=== PATIENT | female | born 1940 | race Caucasian/White ===

== ENCOUNTER → 2016-05-27 | Outpatient (CLI) | payer OTHER ==
[~2016-05-27] VITALS: Ht 162.6 cm; Wt 60.0 kg
[~2016-05-27] MED LIST: ALIGN4 MG PO; ATIVAN0.5 MG PO; AUGMENTIN 875875 M1; BACLOFEN 10MG T10 MG PO; BIOTIN-D1 GM PO; CALCIUM 500 +1 EAC4; COLACE1 EAC1; DESYREL50 MG PO; ESTRACE0.5 MG PO; FISH OIL300 MG PO; IBUPROFEN 200200 M1 PO; MULTI-VITAMIN1 EAC5 PO; NABUMETONE 500500 M1 PO; NAPROSYN250 MG PO; NORCO 5-325 TA1 EACH PO; OMEGA-31000 MG PO; PROCEL PO; TRAMADOL 50 MG50 MG PO; VITAMIN B122500 MCG PO
--- NOTE | ~2016-05-27 | HPC ---
[facility] [address] [place] [address] PAIN MANAGEMENT CONSULTATION Name: ZANA MITCHELL Room #: REG [facility].#: [id number] Admission: 05/27/16 Attend Phys: Donal Parker DO Discharge: Date of : 38 Report #: [id number] THIS REPORT FOR: //name// CC: Alejandro Morales MD DATE OF SERVICE: 05/27/2016 REFERRING PHYSICIAN: Maco Morales MD. CHIEF COMPLAINT: Neck pain and right head pain. HISTORY OF PRESENT ILLNESS: As you know, the patient is a very pleasant 76-year-old female who returns today in followup visit stating she has had recurrent neck pain and right head pain. She is now placing pain score at 7/10. States her pain is constant, aching, sharp, and pounding, exacerbated with loud noise and anxiety, worse in the morning hours upon arising, relaxation, pillow changes, and nabumetone appear to improve pain. She returns today in followup visit with recurrent symptoms without inciting injury or trauma. As you are aware, the patient was doing very well with changes in her pillow and medications. Unfortunately, this began to wane, and has capabilities of improving symptoms. She returns to discuss options. ALLERGIES: NEOMYCIN, IODINATED CONTRAST MATERIAL. CURRENT MEDICATIONS: Nabumetone 500 mg twice a day, baclofen 10 mg once a day, lorazepam, cyanocobalamin, omega 3 fish oil, estradiol, trazodone, Biotin, protein supplements, calcium and multivitamin. SOCIAL HISTORY: The patient denies tobacco, alcohol, IV or illicit drug use. She is retired, retired years ago, accompanied by her daughter. PHYSICAL EXAMINATION: VITAL SIGNS: Blood pressure 136/78, pulse 64, respiratory rate 14, unlabored. The patient is 100% on room air. Height 5 feet 4 inches tall, weight 132.2 pounds, BMI calculated 22.7. GENERAL: Well developed, well nourished, well hydrated, thin. A 76-year-old female appearing her stated age. She is placing current pain score at 7/10. HEENT: Normocephalic and atraumatic. Pupils are equal, round, and reactive to light. Extraocular muscles are intact. Sclerae are nonicteric without injection. NEUROLOGIC: Cranial nerves 2-12 are grossly intact. Speech is fluent. EXTREMITIES: Show no clubbing, no cyanosis, no edema. MUSCULOSKELETAL: There is palpatory tenderness over the upper cervical region. Deep palpation over the distribution of the third occipital nerve on the right [address] [address] PAIN MANAGEMENT CONSULTATION Name: ZANA MITCHELL Room #: REG [facility]#: [id number] Admission: 05/27/16 Attend Phys: Donal Parker DO Discharge: Date of : 38 Report #: [id number] causes intensification of pain with radiation in the patient's typical distribution. Cervical provocation testing including extension, rotation, and lateral flexions met with increasing pain with radiation over the occiput towards the greater and lesser occipital distribution. ASSESSMENT: 1. Third occipital neuralgia. 2. Cervical spondylosis without radiculopathy. 3. Chronic intractable pain. PLAN: 1. The patient has returned today in followup visit. Unfortunately, reporting recurrence of neck pain and head pain. We have discussed with the patient that the source of this pain is the arthritic changes at the upper portion of cervical region. Treatment options remain similar to her initial evaluation. Physical therapy with traction techniques. We discussed medication management changes with addition of a consistent anti-inflammatory that may provide better improvement than nabumetone and the addition of a low dose opioid such as tramadol. We discussed intra-articular injections and third occipital nerve blocks and possible surgical options. After reviewing all risks and benefits of proposed treatment options, the patient requested further changes in medication. 2. The patient was started on tramadol 50 mg dose one tab p.o. t.i.d. to q.i.d. p.r.n. pain. She was given #90 tablets, advised to begin the medication immediately. We will assess efficacy in one week, when she will contact our clinic to discuss improvements or lack of improvement and whether or not she wishes to move forward with injection therapy. 3. The patient will discontinue the use of nabumetone, in place, will be using Zipsor 25 mg dose. She was given samples of the medication today. She is to take the Zipsor in the morning and at dinner time. This should provide better baseline nonsteroidal anti-inflammatory activity. 4. We have made the patient an appointment back with us in one week, assuming no improvement in symptoms with the medications. We will then move forward with third occipital nerve blocks bilaterally to address the third occipital neuralgia, tension headache, and cervical facet arthropathy. <ELECTRONICALLY SIGNED> By: Donal Parker DO 06/01/16 0702 0830 1057 Donal Parker DO /nt
[2016-05-27 09:18] VITALS: BP 136/78
== END ==
LOC: PAIN 07:12
DX: M47.812 Spondylosis without myelopathy or radiculopathy, cervical region (principal); M54.81 Occipital neuralgia

== ENCOUNTER → 2017-02-01 | Outpatient (CLI) | payer OTHER | LOC: RAD 14:31 | DX: M47.896 Other spondylosis, lumbar region (principal); M48.06 Spinal stenosis, lumbar region; M48.07 Spinal stenosis, lumbosacral region; M54.31 Sciatica, right side ==

== ENCOUNTER → 2017-02-09 | Outpatient (CLI) | payer OTHER ==
[~2017-02-09] VITALS: Ht 162.6 cm; Wt 58.1 kg
[~2017-02-09] MED LIST changes: +ALEVE220 MG PO; +MEDROLDOSEPACK PO; -VITAMIN B122500 MCG PO; +VITAMIN B125000 MCG PO
--- NOTE | ~2017-02-09 | HPC ---
[facility] [address] [place] [address] PAIN MANAGEMENT CONSULTATION Name: ZANA MITCHELL Room #: REG [facility].#: [id number] Admission: 02/09/17 Attend Phys: Donal Parker DO Discharge: Date of : 38 Report #: [id number] THIS REPORT FOR: //name// CC: Alejandro Morales MD DATE OF SERVICE: 02/09/2017 REFERRING PHYSICIAN: Maco Morales MD CHIEF COMPLAINT: Low back pain, right lower extremity pain and paresthesias. HISTORY OF PRESENT ILLNESS: As you know, the patient is a 77-year-old female who had acute onset of low back pain, right lower extremity pain with paresthesias began in December 2016, she describes her pain as intermittent, stabbing, numbness, and tingling, exacerbated with walking, improves with sitting and lying down. She places current pain score at 5/10. The patient was originally seen in our clinic for cervical facet arthropathy causing third occipital neuralgia radiating over the top of the patient's head, this was well treated with conservative treatment. Unfortunately, the patient has begun to experience what appears to be lumbar radicular symptoms that has progressively worsened. She denies injury or trauma or changes in medical history that may have led to symptom development. She returns to discuss options for treatment. ALLERGIES: NEOMYCIN and IODINATED CONTRAST MATERIAL. CURRENT MEDICATIONS: Naproxen 220 mg every 12 hours, cyanocobalamin 500 mcg per day, omega-3 fish oil 300 mg once a day, estradiol 0.5 mg once a day, trazodone 50 mg p.o. at bedtime, Align 4 mg once a day, biotin 1 gram per day, protein supplement 1 tab per day, calcium carbonate 1 tab per day, and multivitamin 1 tab per day. SOCIAL HISTORY: The patient denies tobacco, alcohol, IV or illicit drug use. She is retired, retired years ago. She is accompanied by her daughter, is present in room today. IMAGING: No new imaging available. PHYSICAL EXAMINATION: VITAL SIGNS: Blood pressure 126/75, pulse 66, respiratory rate 16 and unlabored, the patient is 97% on room air, height 5 feet 4 inches tall, weight 128 pounds, and BMI calculated 22. GENERAL: Well-developed, well-nourished, well-hydrated 77-year-old female, she appears stated age, placing current pain score around 5/10. HEENT: Normocephalic, atraumatic. Pupils are equal, round, [place] [address] PAIN MANAGEMENT CONSULTATION Name: ZANA MITCHELL Room #: REG [facility]#: [id number] Admission: 02/09/17 Attend Phys: Donal Parker DO Discharge: Date of : 38 Report #: [id number] light. Extraocular muscles are intact. Sclerae nonicteric without injection. NEUROLOGIC: Cranial nerves 2-12 are grossly intact. Speech is fluent. LUNGS: Clear. No wheeze, rhonchi, or rales. CARDIOVASCULAR: Regular. No appreciable gallop or rub. ABDOMEN: Soft, nontender, nondistended, normoactive bowel sounds. EXTREMITIES: Show no clubbing, no cyanosis, and no edema. MUSCULOSKELETAL: Lower extremity strength appears equal and symmetrical 5/5, intact to light touch from L1 through S2 dermatomes. Deep tendon reflexes are symmetrical at patella and Achilles. Ankle clonus negative. Babinski is negative. Seated straight leg raising negative. Supine straight leg raising positive on the right. Chelo's test negative. Modified Gaenslen's positive for some axial low back pain. Lumbar provocation testing including extension, rotation, and lateral flexion all intensify axial back pain, no radiation of symptoms. ASSESSMENT: 1. Lumbar radiculopathy. 2. Lumbosacral spondylosis with radiculopathy. 3. Intractable pain. PLAN: 1. The patient has returned today in followup visit with new onset of low back pain, right lower extremity pain with paresthesias. The patient states pain is exacerbated with walking, improves with lying down and medications. The patient as you are aware suffers from fairly significant facet arthropathy of the cervical region and is likely suffering from similar findings in the lumbar region. The distribution of symptoms appeared to be dermatomal in its pattern and I am concerned about a lumbar radiculopathy. The patient has no imaging of the lower lumbar region to further evaluate whether or not the patient might need be a candidate for epidural injections or surgical options or potentially even more conservative treatment. The patient and I discussed this at length today, we recommend the patient to undergo MRI of lumbar spine without contrast, we will review the findings once that is available and have the patient return to discuss options for treatment. 2. The patient was provided a prescription of MRI lumbar spine without contrast, she will undergo the procedure as quickly as possible. Once this has been completed, we will then review the findings and discuss the options for treatment based on the findings contained within the imaging study. 3. We have made no changes in the patient's medical therapy at this time, we discussed the possibility of adding various medication, she wishes to delay changes in medical therapy until we know specifically what etiology we are dealing with and how to treat directly. We will delay any changes in medical therapy until her return visit. [address] [place] [address] PAIN MANAGEMENT CONSULTATION Name: ZANA MITCHELL Room #: REG [facility].#: [id number] Admission: 02/09/17 Attend Phys: Donal Parker DO Discharge: Date of : 38 Report #: [id number] 4. We will see the patient back in followup visit once she has completed her MRI, we will review the findings at that time and discuss options for treatment. <ELECTRONICALLY SIGNED> By: Donal Parker DO 02/17/17 0858 0736 1242 Donal Parker DO /nt
[2017-02-09 10:32] VITALS: BP 126/75
== END | disposition home or self-care (01) ==
LOC: PAIN 06-02 15:15
DX: M47.27 Other spondylosis with radiculopathy, lumbosacral region (principal); G89.29 Other chronic pain; Z88.8 Allergy status to other drugs, medicaments and biological substances; Z98.890 Other specified postprocedural states

== ENCOUNTER → 2017-02-16 | Outpatient (CLI) | payer OTHER | LOC: MRI 02-10 16:32 | DX: M47.896 Other spondylosis, lumbar region (principal); M51.36 Other intervertebral disc degeneration, lumbar region ==

== ENCOUNTER → 2017-02-17 | Outpatient (CLI) | payer OTHER ==
[~2017-02-17] VITALS: Ht 157.5 cm; Wt 59.2 kg
--- NOTE | ~2017-02-17 | HPC ---
[facility] [address] [place] [address] PAIN MANAGEMENT CONSULTATION Name: ZANA MITCHELL Room #: REG [facility].#: [id number] Admission: 02/17/17 Attend Phys: Donal Parker DO Discharge: Date of : 38 Report #: [id number] THIS REPORT FOR: //name// CC: Alejandro Morales MD DATE OF SERVICE: 02/17/2017 REFERRING PHYSICIAN: Maco Morales MD CHIEF COMPLAINT: Low back pain, right lower extremity pain and paresthesias. HISTORY OF PRESENT ILLNESS: As you know, the patient is a very pleasant 77-year-old female, who returns today in followup visit, having undergone MRI of lumbar spine to further evaluate low back and right lower extremity symptomology. The patient states her pain intensified during a recent trip to [facility]. She returns with increasing pain issues. She followed up with our clinic due to ongoing back pain issues, returns to review the findings of the MRI. She has denied any injury or any trauma that may have led to symptom development. ALLERGIES: NEOMYCIN, IODINATED CONTRAST MATERIAL. CURRENT MEDICATIONS: Nabumetone, baclofen, lorazepam, cyanocobalamin, omega 3 fish oil, estradiol, trazodone, biotin, protein supplements, calcium and multivitamin. SOCIAL HISTORY: The patient continues to deny IV or illicit drug use. Denies any chronic alcohol use. She is a nonsmoker. She is accompanied by her daughter, present in room today. IMAGING: MRI lumbar spine obtained on 02/16/2017 shows normal segmental anatomy. There is a 5 mm grade 1 anterior spondylolisthesis of L4 on L5 related to facet arthrosis. T12-L1 is unremarkable; L1-L2 shows disk space narrowing, disk desiccation, Modic type 2 changes in the end plates, no significant central canal neural foraminal stenosis, trace amount of fluid in the left facet joint; L2-L3 disk space narrowing, disk desiccation, minimal endplate bridging, no central canal neural foraminal stenosis. L3-L4 severe degenerative disk disease, markedly disk space narrowing, mild posterior endplate ridging, [id number] bilateral facet arthropathy, mild spinal spurring, ligamentum flavum hypertrophy at 6 mm, bilateral symmetric neural foraminal narrowing, subtle effacement of the posterior portions of the exiting L3 nerve root. L4-L5 grade 1 spondylolisthesis measuring 5 mm, disk desiccation, advanced hypertrophic changes, ligamentum flavum hypertrophy, constellation of symptoms causing moderate central canal stenosis, bilateral recess narrowing, posterior [address] [address] PAIN MANAGEMENT CONSULTATION Name: MARY MITCHELLTRAY Borjas Room #: REG [facility]#: [id number] Admission: 02/17/17 Attend Phys: Donal Parker DO Discharge: Date of : 38 Report #: [id number] inferior margins of the exiting L4 nerve roots are affected, degenerative synovitis. L5-S1 chronic appearing pars interarticularis fractures, bilateral facet arthropathy. No central canal neural foraminal stenosis. PHYSICAL EXAMINATION: VITAL SIGNS: Blood pressure 121/75, pulse 72, respiratory rate 14 and unlabored. The patient 99% on room air, height 5 feet 2 inches tall, weight 130.6 pounds, BMI calculated 23.9. GENERAL: Well developed, well nourished, well hydrated 77-year-old female. She appears her stated age. She is placing current pain score 2/10. HEENT: Normocephalic, atraumatic. Pupils equal, round, reactive to light. Extraocular muscles are intact. Sclerae nonicteric without injection. NEUROLOGIC: Cranial nerves 2-12 grossly intact. Speech is fluent. The patient deemed an excellent historian. LUNGS: Clear; no wheeze, rhonchi or rales. CARDIOVASCULAR: Regular. No appreciable gallop or rub. ABDOMEN: Soft, nontender, nondistended, normoactive bowel sounds. EXTREMITIES: Show no clubbing, no cyanosis, no edema. MUSCULOSKELETAL: Lower extremity strength equal and symmetrical 5/5, intact to light touch from L1 through S2 dermatomes. Seated straight leg raising negative. Supine straight leg raising positive right. Chelo's test negative. Modified Gaenslen's positive for axial low back pain. Ankle clonus negative. Babinski is negative. ASSESSMENT: 1. Symptomatic lumbar radiculopathy. 2. Spinal stenosis of lumbar spine. 3. Displacement of lumbar intervertebral disk with radiculopathy. 4. Lumbosacral spondylosis with radiculopathy. 5. Facet arthropathy of lower lumbar spine. 6. Neural foraminal stenosis. 7. Chronic intractable pain. PLAN: 1. The patient returns today in followup visit where we have taken 24 minutes of time to review the patient's MRI and the findings therein and how they correlate with the patient's symptoms. It does appear the patient is suffering from central canal stenosis affecting mainly the right side at this time, though there was some indication in the history that the patient was experiencing some left posterolateral thigh pain while she was in the [facility]. We discussed with the patient's treatment options based on the findings of the MRI. The following was discussed. 2. The patient and I discussed physical therapy, stretching exercises, core strengthening as a conservative option of treating the symptoms. We discussed medication management with the addition of a neuropathic pain medication and low dose opioid for pain control. We discussed epidural injections, whether this be [facility] [address] [place] [address] PAIN MANAGEMENT CONSULTATION Name: REED MITCHELLKIRTI Borjas Room #: REG [facility].#: [id number] Admission: 02/17/17 Attend Phys: Donal Parker DO Discharge: Date of : 38 Report #: [id number] traditional interlaminar epidural injections, transforaminal epidural injections. We also discussed surgical options after reviewing risks and benefits of all proposed treatment options, the patient chose to continue with conservative medical therapy. 3. We have provided the patient with a Medrol Dosepak. This will be useful for the patient if her symptoms become intense and we are unable to see her back quickly for an epidural injection. We have provided this patient a Medrol Dosepak to take as directed if she needs to utilize this medication to control pain issues. If patient does resort to utilizing these medications, she is to contact our clinic, so that we can make her a return appointment to discuss options for treatment more aggressive than the Medrol Dosepak. 4. We will see the patient back in followup visit. She is going to continue her physical therapy. We will see her back as-needed for injection therapies or discuss medication management. By: 0711 0754 Donal Parker DO /nt
[2017-02-17 10:13] VITALS: BP 121/75
== END | disposition home or self-care (01) ==
LOC: PAIN 07:19
DX: M51.16 Intervertebral disc disorders with radiculopathy, lumbar region (principal); M47.27 Other spondylosis with radiculopathy, lumbosacral region; G89.29 Other chronic pain; Z88.8 Allergy status to other drugs, medicaments and biological substances; Z79.899 Other long term (current) drug therapy

== ENCOUNTER 2017-03-18 09:54 | Inpatient (IN) | payer OTHER ==
[~2017-03-18] VITALS: Ht 157.5 cm; Wt 57.6 kg
--- NOTE | ~2017-03-18 | 2DMMODE ---
[facility] [address] [facility] [address] [place] [address] 2 D/M-MODE ECHOCARDIOGRAM Name: MITCHELLMARYMERCEDESSANDI Borjas Room #: 170-11 ADM IN M.R.#: [id number] Admission: 03/18/17 Attend Phys: Alejandro Pierre Discharge: Date of : 36 Date of Service: 03/18/17 1332 Report #: [id number] THIS REPORT FOR: //name// APPROVED REPORT Study performed: 03/18/2017 12:51:22 EXAM: Comprehensive 2D, Doppler, and color-flow Echocardiogram Patient Location: Echo lab Room #: ER11 Status: routine BSA: 1.59 HR: 70 bpm BP: 122/67 mmHg Rhythm: NSR Other Information Study Quality: Good Indications Chest Pain Edema 2D Dimensions RVDd: 31.20 mm LVEF(%): 63.30 (>50%) IVSd: 8.09 (7-11mm) LVOT Diam: 18.67 (18-24mm) LVDd: 38.76 mm PWd: 8.35 (7-11mm) Ascending Ao: 26.94 (22-36mm) LVDs: 25.67 (25-40mm) Aortic Root: 31.41 mm Garvin's LVEF: 63.30 % Volumes Left Atrial Volume (Systole) Single Plane 4CH: 45.23 mL Single Plane 2CH: 45.96 mL LA ESV Index: 31.00 mL/m2 Aortic Valve AoV Peak Giovanni.: 1.61 m/s AO Peak Gr.: 10.42 mmHg LVOT Max P.79 mmHg LVOT Max V: 1.30 m/s JENNYFER Vmax: 2.21 cm2 Mitral Valve E/A Ratio: 0.6 [facility] [address] [place] [address] 2 D/M-MODE ECHOCARDIOGRAM Name: ZANA MITCHELL Room #: [address] [place] [address] [place] ..#: [id number] Admission: 03/18/17 Attend Phys: Alejandro Pierre Discharge: Date of : 36 Date of Service: 03/18/17 1332 Report #: [id number] MV Decel. Time: 238.49 ms MV E Max Giovanni.: 0.73 m/s MV A Giovanni.: 1.27 m/s MV PHT: 69.16 ms IVRT: 78.43 ms Pulmonary Valve PV Peak Giovanni.: 1.14 m/s PV Peak Gr.: 5.23 mmHg Pulmonary Vein P Vein S: 0.79 m/s P Vein A: 0.48 m/s P Vein D: 0.49 m/s P Vein A Dur.: 120.0 msec P Vein S/D Ratio: 1.61 Tricuspid Valve TR Peak Giovanni.: 2.66 m/s RAP Estimate: 5.00 mmHg TR Peak Gr.: 28.35 mmHg PA Pressure: 33.00 mmHg Left Ventricle The left ventricle is normal size. There is normal LV segmental wall motion. There is normal left ventricular wall thickness. Left ventricular systolic function is normal. LVEF is 60-65%. Mild diastolic dysfunction is present (impaired relaxation pattern). Right Ventricle The right ventricle is normal size. The right ventricular systolic function is normal. Atria The left atrium size is normal. Atrial septal aneurysm. No shunting appreciated with color doppler. The right atrium size is normal. Aortic Valve Aortic valve is minimally calcified, trileaflet. Trace aortic regurgitation. There is no aortic valvular stenosis. Mitral Valve The mitral valve is normal in structure. There is no mitral valve regurgitation noted. No evidence of mitral valve stenosis. Tricuspid Valve The tricuspid valve is normal in structure. Mild tricuspid regurgitation. Estimated PAP is 30-35mmHg. [place] [id number] 2 D/M-MODE ECHOCARDIOGRAM Name: ZANA MITCHELL Room #: [address] [place] [address] [place] [facility]#: [id number] Admission: 03/18/17 Attend Phys: Alejandro Pierre Discharge: Date of : 36 Date of Service: 03/18/17 1332 Report #: [id number] Pulmonic Valve Pulmonic valve is not well visualized. Trace to mild pulmonic regurgitation. Great Vessels The aortic root is normal in size. The ascending aorta is normal in size. IVC is normal in size and collapses >50% with inspiration. Pericardium There is no pericardial effusion. <Conclusion> Left ventricular systolic function is normal. There is normal LV segmental wall motion. LVEF 60-65%. Mild diastolic dysfunction is present (impaired relaxation pattern). Atrial septal aneurysm. No shunting appreciated with color doppler. Aortic valve is minimally calcified, trileaflet. No aortic valvular stenosis, trace insufficiency. The mitral valve is normal in structure. No mitral valve regurgitation noted. Pulmonary artery pressure of 30-35mmHg There is no pericardial effusion. <ELECTRONICALLY SIGNED> By: Beto Carias MD, FACC 03/18/171331 31 31 Beto Carias MD, FACC /INF
--- NOTE | ~2017-03-18 | D ---
[facility] [place] [address] DISCHARGE SUMMARY Name: ZANA MITCHELL Room #: 418-P [facility] IN M.R.#: [id number] Admission: 03/18/17 Attend Phys: Suad Packer Discharge: 03/20/17 Date of : 36 Report #: [id number] THIS REPORT FOR: //name// CC: Alejandro Tam DATE OF SERVICE: 03/20/2017 FINAL DIAGNOSES: 1. Gastritis. 2. Pseudogout. HOSPITAL COURSE: The patient was admitted with epigastric pain, consideration of gallbladder disease was made with multiple studies. Ultrasound and HIDA scan were unremarkable. Dr. Snell did not feel acute surgical intervention was warranted but close monitoring of her symptoms as her pain may be related to gallbladder disease. EGD was performed by Dr. Diaz, revealed mild nonbleeding gastritis, nonsteroidals were discontinued. Dr. Sy saw her as well for swelling of multiple joints and diagnosed pseudogout, steroids were ordered. She had no other interval complications. DISPOSITION: She will be discharged to home with diet and activity as tolerated. Follow up with Dr. Tam in 1 week. MEDICATIONS: Protonix 40 mg a day and prednisone 20 mg a day for 5 days. By: 0749 [id number] Christoph Reynaga MD /nt
--- NOTE | ~2017-03-18 | HC ---
[facility] [place] [address] CONSULTATION Name: ZANA MITCHELL Suad Room #: 418-P [facility] IN M.R.#: [id number] Admission: 03/18/17 Attend Phys: Suad Packer Discharge: 03/20/17 Date of : 36 Report #: [id number] THIS REPORT FOR: //name// CC: Alejandro Tam DATE OF SERVICE: 03/19/2017 DATE OF SERVICE: 03/19/2017 REASON FOR CONSULTATION: Abdominal pain. HISTORY OF PRESENT ILLNESS: The patient is a 77-year-old who was admitted from the Emergency Room. Early morning, the patient developed pain and it kept getting worse. She got up, went downstairs, to see if she could sleep in a different position. She went to the bathroom, actually stumbled and hit her head. The pain started around the end of December. One episode was after eating a barbecue and it occurred at nighttime. Wednesday night she had a frozen taco. The pain actually started on the right side, then later on it was on the left side. Now it is epigastric. No vomiting. She did have some soft loose stool. The patient has been taking some Gaviscon. She has also been taking Aleve, and Advil because of swelling in her hands. She denies any family history of gallbladder disease. The patient's liver function tests are normal. Ultrasound did not show any gallstone, no gallbladder wall thickening. She sometimes does have some bitter taste in her mouth. The patient did have an EGD many years ago with Dr. Rahul Molina at [facility]. She said there was some tightening of the esophagus, possible spasm. She had a colonoscopy this year. PAST MEDICAL AND SURGICAL HISTORY: She has had back surgery in 2002, hysterectomy in 2003, bladder lift also. No diabetes, heart disease, high blood pressure. ALLERGIES: IODINE, NEOMYCIN. PHYSICAL EXAMINATION: GENERAL: The patient is an elderly female in no acute distress. She is well developed, well nourished. LUNGS: Clear. ABDOMEN: She is not tender in the abdomen. No localized tenderness identified. No guarding, no mass. No ascites. IMPRESSION: The patient is a 77-year-old with several episodes of abdominal pain. The pain has moved in location, was in the right upper quadrant, then left side in the upper abdomen, left upper quadrant, then epigastric. Seems to be triggered by certain foods such as barbecue ribs. The symptoms usually at nighttime and wakes her up. Usually in the morning it is gone. This particular episode was worse and she came to the Emergency Room. The pain does sounds like [facility] [address] [place] [address] CONSULTATION Name: STEPHENZANA Room #: 418-P DIS IN M.R.#: [id number] Admission: 03/18/17 Attend Phys: Suad Packer Discharge: 03/20/17 Date of : 38 Report #: [id number] gallbladder disease, likely acalculous cholecystitis. The patient is set up for a PIPIDA scan later today. I think it would be good to have an EGD done since the pain is mainly epigastric. Rule out esophagitis. We will consult Dr. Diaz. Depending on what she prefers pending the workup, consider cholecystectomy. By: 0933 1144 Brett Snell MD /nt
--- NOTE | ~2017-03-18 | EKG ---
[address] [address] ELECTROCARDIOGRAM REPORT Name: MARY MITCHELLTRAY Suad Room #: 418-P ADM IN M.R.#: [id number] Admission: 03/18/17 Attend Phys: Suad Packer Discharge: Date of : 38 Report #: [id number] THIS REPORT FOR: //name// [facility] ED Test Date: 2017-03-18 Test Time: 10:15:59 Pat Name: ZANA MITCHELL Department: Room: [facility] Gender: F Quill Stripper: LORE : 1940 Requested By: Kulwant Sher Order Number: [id number] MD: Vladimir Leahy Measurements Intervals Cash Rate: 69 P: 15 UT: 204 QRS: 34 QRSD: 97 T: 46 QT: 407 QTc: 436 Interpretive Statements Normal sinus rhythm Electronically Signed On 03-19-2017 6:49:21 CDT by Vladimir Leahy [email or web address] <ELECTRONICALLY SIGNED> By: Vladimir Leahy MD 03/19/17 0649 1015 1015 Vladimir Leahy MD /MARK
--- NOTE | ~2017-03-18 | P ---
[facility] [place] [address] PROCEDURE REPORT Name: ZANA MITCHELL Room #: 418-P [facility] IN M.R.#: [id number] Admission: 03/18/17 Attend Phys: Suad Packer Discharge: 03/20/17 Date of : 38 Report #: [id number] THIS REPORT FOR: //name// CC: Yonis Snell MD DATE OF SERVICE: 03/20/2017 PROCEDURE PERFORMED: Upper endoscopy with biopsies. HISTORY OF PRESENT ILLNESS: The patient is a 77-year-old female with intermittent mid epigastric abdominal pain and low chest pain, tends to be worse at night. Ultrasound of the abdomen was performed, which was normal. She had a PIPIDA scan last evening, which was also normal with the gallbladder ejection fraction 93% and no reproduction of her pain. She has since been in the hospital on Protonix. She denies any abdominal pain at this time. Plan is for upper endoscopy. DESCRIPTION OF PROCEDURE: The risks and benefits of the procedure were explained to the patient. Those risks including but not limited to bleeding, perforation, the risk of sedation. She understood these risks and gave informed consent. Sedation was given using propofol per anesthesia. Next, using a standard Chasqui Businon upper endoscope, the scope was placed in the patient's mouth and advanced under direct vision through the esophagus, stomach and into the second portion of the duodenum. The larynx was normal in appearance. The esophagus was normal throughout. The GE junction was normal. In the stomach, there was a mild gastritis, no evidence of ulcerations or erosions. Biopsies were obtained to rule out H. pylori. The pylorus was normal and patent. The duodenal bulb, first and second portion were all normal. Biopsies were also obtained to rule out the possibility of celiac sprue. The scope was then withdrawn and the procedure terminated. The patient tolerated the procedure well. IMPRESSION: 1. Mild gastritis. 2. Otherwise, normal upper endoscopy. RECOMMENDATIONS: 1. Await biopsy results. 2. We discussed a trial of daily PPI therapy for the next 1-2 months. 3. Okay with discharge to home today. [facility] [address] [place] [address] PROCEDURE REPORT Name: STEPHENMARYMERCEDESSANDI Borjas Room #: 418-P DIS IN M.R.#: [id number] Admission: 03/18/17 Attend Phys: Suad Packer Discharge: 03/20/17 Date of : 38 Report #: [id number] Thank you for allowing me to participate in her care. By: 1037 0059 Dmitry Diaz MD /nt
--- NOTE | ~2017-03-18 | H ---
[facility] [place] [address] HISTORY AND PHYSICAL Name: ZANA MITCHELL Suad Room #: 418-P ADM IN M.R.#: [id number] Admission: 03/18/17 Attend Phys: Suad Packer Discharge: Date of : 38 Report #: [id number] THIS REPORT FOR: //name// CC: Alejandro Tam DATE OF SERVICE: 03/18/2017 CHIEF COMPLAINT: Epigastric abdominal pain. HISTORY OF PRESENT ILLNESS: The patient is a 77-year-old female who was admitted through the Emergency Room with complaints of epigastric pain. She has had symptoms that have been recurring off and on at night for a number of days. She said the pain generally awakes her at night and his centered in the epigastric area with some radiation up into her lower esophagus. She has had 1 episode with nausea with it, but generally it is just pain. She has to get up and walk around through the night and nothing really seems to relieve it and tends to armin on its own. However, during the day with routine activity or meals, she has not had pain. Her other ongoing issue is that she has had some pain and swelling in the right hand for a number of months. She said at times other joints have been swollen, including her knees. She has had cardiac stress testing negative in the past and Cardiology has assessed her so far and did not feel this represents an acute cardiac process. PAST MEDICAL HISTORY: None. PAST SURGICAL HISTORY: Hysterectomy, bladder suspension, laminectomy. FAMILY HISTORY: Noncontributory. SOCIAL HISTORY: She is living with her family. No chronic alcohol or tobacco use. ALLERGIES: NEOMYCIN, IODINE AND SULFA. MEDICATIONS: Other than supplements, she takes trazodone 50 mg at bedtime and Estrace 1 mg. REVIEW OF SYSTEMS: Denies headache, abdominal pain, shortness of breath, fever, chills, nausea, vomiting, diarrhea, constipation, dysuria, syncope. OBJECTIVE: VITAL SIGNS: Temperature of 36.6, pulse , respirations 18, blood pressure 126/65. GENERAL: She is awake and alert, sitting up in the bedside chair, in no distress. HEAD AND NECK: Unremarkable. [facility] [address] [place] [address] HISTORY AND PHYSICAL Name: ZANA MITCHELL Room #: 418-P [facility] IN [facility].#: [id number] Admission: 03/18/17 Attend Phys: Suad Packer Discharge: Date of : 38 Report #: [id number] LUNGS: Clear. HEART: Regular. ABDOMEN: Soft, normoactive bowel sounds. No rebound or guarding. EXTREMITIES: No cyanosis, clubbing or edema. There is some swelling in the metacarpal bones of the right hand, she is tender and stiff. There is little bit of swelling, perhaps in the knees. NEUROLOGIC: Cranial nerves intact. Speech is fluent, oriented x 4, global strength intact. DIAGNOSTIC STUDIES: Lab, x-ray, ultrasound, they are all reviewed. ASSESSMENT: 1. Epigastric abdominal pain. 2. Inflammatory arthritis. PLAN: I will ask Dr. Snell to assess her for the possibility of her pain being related to a gallbladder process. Despite the normal appearing ultrasound, a HIDA scan will be ordered. I will also ask Dr. Sy to assess possible inflammatory arthritic syndrome. <ELECTRONICALLY SIGNED> By: Christoph Reynaga MD 03/19/17 1431 0955 1021 Christoph Reynaga MD /nt
[2017-03-18 09:55] VITALS: BP 121/64
[2017-03-18 10:41] LABS: HEMATOCRIT 34.9 % (37.0-47.0); HEMOGLOBIN 11.9 gm/dL (12.0-15.0); MCH 30.3 pg (26.0-34.0); MCHC 34.2 g/dL (28.0-37.0); MCV 88.7 fL (80.0-100.0); RBC 3.93 mil/uL (4.20-5.00); RDW 13.2 % (10.5-14.5); WBC 8.4 thou/uL (4.0-11.0)
[2017-03-18 10:50] LABS: ANION GAP 6 mmol/L (7-16); BUN 18 mg/dL (7-18); CALCIUM 8.8 mg/dL (8.5-10.1); CHLORIDE 104 mmol/L (98-107); CO2 26 mmol/L (21-32); CREATININE 0.8 mg/dL (0.6-1.0); GLUCOSE 134 mg/dL (74-106); POTASSIUM 3.9 mmol/L (3.5-5.1); SODIUM 136 mmol/L (136-145)
[2017-03-18 10:59] LABS: TROPONIN-I < 0.04 ng/mL (<0.06)
[2017-03-18 11:01] LABS: URINE BILIRUBIN NEGATIVE (Negative); URINE BLOOD NEGATIVE (Negative); URINE COLOR YELLOW; URINE GLUCOSE-RANDOM* NEGATIVE (Negative); URINE KETONES NEGATIVE (Negative); URINE LEUKOCYTES-REFLEX NEGATIVE (Negative); URINE PROTEIN (DIPSTICK) NEGATIVE (Negative); URINE UROBILINOGEN 0.2 E.U./dl (0.2-1.0)
[2017-03-18 12:24] VITALS: BP 122/67
[2017-03-18 14:05] VITALS: BP 130/63
[2017-03-18 15:05] VITALS: BP 122/66
[2017-03-18 19:26] VITALS: BP 125/65
[2017-03-19 03:52] VITALS: BP 151/67
[2017-03-19 08:23] VITALS: BP 126/65
[2017-03-19 12:42] LABS: ALKALINE PHOSPHATASE 67 U/L (46-116); DIRECT BILIRUBIN < 0.1 mg/dL (<0.1-0.3); SGOT 19 U/L (15-37); SGPT 15 U/L (30-65); TOTAL BILIRUBIN 0.3 mg/dL (<0.1-1.0); TOTAL PROTEIN 7.7 g/dL (6.4-8.2)
[2017-03-19 16:46] VITALS: BP 122/69
[2017-03-19 19:34] VITALS: BP 123/74
[2017-03-19 20:04] VITALS: BP 123/57
[2017-03-20 03:00] VITALS: BP 128/63
[2017-03-20 07:31] VITALS: BP 115/60
[2017-03-20] MEDS ORDERED: ACETAMINOPHEN325 M1 PO (08:08)
[2017-03-20] MEDS ORDERED: PROTONIX40 M1 PO (08:09)
[2017-03-20] MEDS ORDERED: PREDNISONE 20 M20 MG PO (08:11)
[2017-03-20 11:13] VITALS: BP 115/60
[2017-03-20 12:13] VITALS: BP 115/60
== END 2017-03-20 12:50 | disposition home or self-care (01) | DRG 392 ==
LOC: ER 09:54 → EROBS 11:36 → 4E 11:36
PROVIDERS: Emergency Medicine; Internal Medicine Geriatric Medicine
PROC: 0DB68ZX Excision of Stomach, Via Natural or Artificial Opening Endoscopic, Diagnostic (ICD-10-PCS; principal; 2017-03-20)
DX: K29.70 Gastritis, unspecified, without bleeding (principal); M11.29 Other chondrocalcinosis, multiple sites; M19.90 Unspecified osteoarthritis, unspecified site; F41.9 Anxiety disorder, unspecified; R07.89 Other chest pain; D64.9 Anemia, unspecified; G47.00 Insomnia, unspecified; Z90.710 Acquired absence of both cervix and uterus; Z79.899 Other long term (current) drug therapy; Z88.8 Allergy status to other drugs, medicaments and biological substances; Z88.2 Allergy status to sulfonamides
CPT/HCPCS: 10783; 62110; 62900

== ENCOUNTER → 2017-04-20 | Outpatient (CLI) | payer OTHER ==
[~2017-04-20] MED LIST changes: +ACETAMINOPHEN325 M1 PO; +PREDNISONE 20 M20 MG PO; +PROTONIX40 M1 PO
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
[2017-04-20 09:48] VITALS: BP 132/69
== END | disposition home or self-care (01) ==
LOC: PAIN 07:07
DX: M51.16 Intervertebral disc disorders with radiculopathy, lumbar region (principal); M48.061 Spinal stenosis, lumbar region without neurogenic claudication; M47.27 Other spondylosis with radiculopathy, lumbosacral region; G89.29 Other chronic pain; S92.901A Unspecified fracture of right foot, initial encounter for closed fracture; M46.86 Other specified inflammatory spondylopathies, lumbar region; Z91.041 Radiographic dye allergy status; Z88.2 Allergy status to sulfonamides; Z88.8 Allergy status to other drugs, medicaments and biological substances; X58.XXXA Exposure to other specified factors, initial encounter; Y93.89 Activity, other specified; Y92.89 Other specified places as the place of occurrence of the external cause; Y99.8 Other external cause status

== ENCOUNTER → 2017-06-08 | Outpatient (CLI) | payer OTHER ==
[~2017-06-08] VITALS: Ht 157.5 cm; Wt 55.3 kg
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
[2017-06-08 12:39] VITALS: BP 139/70
== END ==
LOC: PAIN 07:14
DX: M48.061 Spinal stenosis, lumbar region without neurogenic claudication (principal); M51.26 Other intervertebral disc displacement, lumbar region; M47.27 Other spondylosis with radiculopathy, lumbosacral region; M46.86 Other specified inflammatory spondylopathies, lumbar region; G89.29 Other chronic pain; M79.671 Pain in right foot

== ENCOUNTER → 2017-09-09 | Outpatient (CLI) | payer OTHER | LOC: MRI 06:00 | DX: M48.061 Spinal stenosis, lumbar region without neurogenic claudication (principal); M54.41 Lumbago with sciatica, right side ==

== ENCOUNTER → 2017-10-06 | Outpatient (CLI) | payer OTHER | LOC: RAD 08:40 | DX: M47.896 Other spondylosis, lumbar region (principal); M43.16 Spondylolisthesis, lumbar region ==

== ENCOUNTER → 2021-04-22 | Outpatient (CLI) | payer OTHER | LOC: NUC 09:29 | PROVIDERS: ATTEND Internal Medicine | DX: M85.89 Other specified disorders of bone density and structure, multiple sites (principal) ==